=== PATIENT | male | born 1975 | race Two or more races ===

== ENCOUNTER 2021-07-08 14:58 | Inpatient (IN) | payer MEDICAID ==
[~2021-07-08] VITALS: Ht 177.8 cm; Wt 101.0 kg
[2021-07-08] MEDS ORDERED: ENOXAPARIN SOD 100 MG/1 ML SYRINGE SC ONE (16:00)
[2021-07-08 17:08] LABS: Basophils # (auto) 0.1 10 ^3/uL (0-0.2); Basophils % (auto) 0.9 % (0.0-2.0); Eosinophils # (auto) 0.3 10 ^3/uL (0-0.8); Hematocrit 52.9 % (41.0-53.0); Hemoglobin 17.2 g/dL (13.5-17.5); Lymphocytes # (auto) 2.7 10 ^3/uL (0.4-5.4); Lymphocytes % (auto) 29.6 % (10.0-50.0); Mean Corpuscular Hemoglobin 31.1 pg (28.0-32.0); Mean Corpuscular Hgb Conc. 32.5 g/dL (32.0-36.0); Mean Corpuscular Volume 95.6 fL (80.0-100.0); Monocytes # (auto) 0.8 10 ^3/uL (0-1.3); Monocytes % (auto) 8.9 % (0.0-12.0); Neutrophils # (auto) 5.3 10 ^3/uL (1.6-8.6); Neutrophils % (auto) 57.6 % (37.0-80.0); Nucleated Red Blood Cells % 0.2 %; Red Blood Cells 5.54 10^6/uL (4.5-5.90); Red Cell Distribution Width 15.2 % (11.8-14.3); White Blood Cell 9.2 10^3/uL (4.4-10.8)
[2021-07-08] MEDS ORDERED: IOHEXOL 350 MG/ML 100ML IJ ONE (17:13)
[2021-07-08 17:21] LABS: Albumin 3.4 g/dL (3.4-5.0); Calcium 8.9 mg/dL (8.5-10.1)
[2021-07-08 17:25] LABS: BUN/Creatinine Ratio 15.6; Bilirubin, Total 0.5 mg/dL (0.2-1.0); Total Protein 7.6 g/dL (6.4-8.2)
[2021-07-08 17:31] LABS: Potassium 5.8 mmol/L (3.5-5.1)
[2021-07-08] MEDS ORDERED: ONDANSETRON HCL 4 MG/2 ML VIAL IV PRN (19:45)
[2021-07-08] MEDS ORDERED: ACETAMINOPHEN 325 MG TAB PO PRN (19:45)
[2021-07-08] MEDS ORDERED: SODIUM ZIRCONIUM CYCL 10 GM PAK PO ONE (19:45)
[2021-07-08] MEDS ORDERED: TEMAZEPAM 15 MG CAP PO PRN (19:45)
[2021-07-08 23:42] VITALS: BP 109/59
[2021-07-09] VITALS (7 sets, daily range): BP systolic 108–139; BP diastolic 62–78
[2021-07-09] MEDS ORDERED: ASPI325T4 PO (00:38)
[2021-07-09 05:42] LABS: Basophils # (auto) 0 10 ^3/uL (0-0.2); Basophils % (auto) 0.7 % (0.0-2.0); Eosinophils # (auto) 0.3 10 ^3/uL (0-0.8); Hematocrit 46.9 % (41.0-53.0); Hemoglobin 15.6 g/dL (13.5-17.5); Lymphocytes # (auto) 2.3 10 ^3/uL (0.4-5.4); Mean Corpuscular Hemoglobin 31.7 pg (28.0-32.0); Mean Corpuscular Hgb Conc. 33.3 g/dL (32.0-36.0); Mean Corpuscular Volume 95.1 fL (80.0-100.0); Monocytes # (auto) 0.8 10 ^3/uL (0-1.3); Monocytes % (auto) 11.4 % (0.0-12.0); Neutrophils # (auto) 3.3 10 ^3/uL (1.6-8.6); Neutrophils % (auto) 48.9 % (37.0-80.0); Nucleated Red Blood Cells % 0.2 %; Red Blood Cells 4.93 10^6/uL (4.5-5.90); Red Cell Distribution Width 14.8 % (11.8-14.3); White Blood Cell 6.7 10^3/uL (4.4-10.8)
[2021-07-09 05:54] LABS: INR 1.02 (0.9-1.15); Partial Thromboplastin Time 30.1 sec (23.6-33.0)
[2021-07-09 05:57] LABS: Calcium 8.5 mg/dL (8.5-10.1); Potassium 4.3 mmol/L (3.5-5.1)
[2021-07-09] MEDS: ENOXAPARIN SOD 100 MG/1 ML SYRINGE SC SCH ×2 (10:04→20:57)
[2021-07-09] MEDS: HYDROcodone-ACET 5/325MG TAB PO PRN (21:51)
[2021-07-10 05:00] VITALS: BP 122/77
[2021-07-10 08:00] VITALS: BP 107/67
[2021-07-10 09:55] VITALS: BP 107/67
[2021-07-10] MEDS: ENOXAPARIN SOD 100 MG/1 ML SYRINGE SC SCH ×2 (10:00→22:13)
[2021-07-10 14:25] VITALS: BP 97/67
[2021-07-10] MEDS: HYDROcodone-ACET 5/325MG TAB PO PRN (15:38)
[2021-07-10 16:52] VITALS: BP 121/71
[2021-07-10 22:00] VITALS: BP 96/61
[2021-07-11 05:00] VITALS: BP 91/58
[2021-07-11 09:00] VITALS: BP 116/69
[2021-07-11] MEDS: ENOXAPARIN SOD 100 MG/1 ML SYRINGE SC SCH ×2 (11:26→23:30)
[2021-07-11] MEDS: ASPirin-EC 81 mg tab PO SCH (11:26)
[2021-07-11 13:00] VITALS: BP 122/75
[2021-07-11 17:15] VITALS: BP 124/78
[2021-07-11 22:37] VITALS: BP 111/64
[2021-07-12 05:00] VITALS: BP 90/51
[2021-07-12 09:00] VITALS: BP 119/70
[2021-07-12] MEDS: ASPirin-EC 81 mg tab PO SCH (10:00)
[2021-07-12] MEDS: ENOXAPARIN SOD 100 MG/1 ML SYRINGE SC SCH ×2 (10:00→22:24)
[2021-07-12 13:00] VITALS: BP 101/68
[2021-07-12 17:06] VITALS: BP 105/67
[2021-07-12 22:26] VITALS: BP 98/60
[2021-07-12] MEDS: HYDROcodone-ACET 5/325MG TAB PO PRN (22:31)
[2021-07-13 05:00] VITALS: BP 95/59
[2021-07-13 09:00] VITALS: BP 101/65
[2021-07-13] MEDS: ASPirin-EC 81 mg tab PO SCH (10:00)
[2021-07-13] MEDS: ENOXAPARIN SOD 100 MG/1 ML SYRINGE SC SCH ×2 (10:00→22:11)
[2021-07-13 13:00] VITALS: BP 109/75
[2021-07-13 17:06] VITALS: BP 112/68
[2021-07-13 22:00] VITALS: BP 101/62
[2021-07-13] MEDS: HYDROcodone-ACET 5/325MG TAB PO PRN (22:12)
[2021-07-14 04:56] VITALS: BP 94/56
[2021-07-14 09:00] VITALS: BP 101/68
[2021-07-14] MEDS: ASPirin-EC 81 mg tab PO SCH (09:34)
[2021-07-14] MEDS: ENOXAPARIN SOD 100 MG/1 ML SYRINGE SC SCH ×2 (09:34→21:46)
[2021-07-14 13:02] VITALS: BP 99/64
[2021-07-14 17:00] VITALS: BP 106/75
[2021-07-14] MEDS: HYDROcodone-ACET 5/325MG TAB PO PRN (21:46)
[2021-07-14 22:00] VITALS: BP 121/66
[2021-07-15 05:00] VITALS: BP 98/66
[2021-07-15 09:00] VITALS: BP 131/74
[2021-07-15 13:00] VITALS: BP 121/74
[2021-07-15] MEDS ORDERED: GELATIN 1 SPONGE SIZE 50 TOP ONE (13:50)
[2021-07-15] MEDS ORDERED: IODIXANOL 320MG/ML 100ML BTL IV ONE (13:50)
[2021-07-15] MEDS ORDERED: IOHEXOL 350 MG/ML 100ML IJ ONE (13:51)
[2021-07-15] MEDS ORDERED: HEPARIN IN NS 1000Units/500mL 1,500 ML ONE (13:51)
[2021-07-15] MEDS: ASPirin-EC 81 mg tab PO SCH (15:24)
[2021-07-15] MEDS: ENOXAPARIN SOD 100 MG/1 ML SYRINGE SC SCH (15:25)
[2021-07-15 17:00] VITALS: BP 105/65
[2021-07-15 22:00] VITALS: BP 112/72
[2021-07-15] MEDS: HYDROcodone-ACET 5/325MG TAB PO PRN (22:08)
[2021-07-16] VITALS (13 sets, daily range): BP systolic 92–116; BP diastolic 52–71
[2021-07-16] MEDS: ENOXAPARIN SOD 100 MG/1 ML SYRINGE SC SCH ×2 (02:57→10:00)
[2021-07-16] MEDS: ASPirin-EC 81 mg tab PO SCH (10:00)
[2021-07-16] MEDS ORDERED: LIDOCAINE 2%HCL (LOCAL ANESTH.) INJ 20ML MDV ONE (13:03)
[2021-07-16] MEDS ORDERED: IOHEXOL 350 MG/ML 100ML IJ ONE ×2 (13:03→14:13)
[2021-07-16] MEDS ORDERED: ANGIOMAX 250 MG VIAL IV ONE (14:07)
[2021-07-16] MEDS ORDERED: fentaNYL CITRATE 100 MCG/2 ML VL ONE (14:07)
[2021-07-16] MEDS ORDERED: SODIUM CHL 0.9% 50 ML ONE (14:08)
[2021-07-16] MEDS ORDERED: MIDAZOLAM HCL 2MG/2ML 2ml VIAL (1mg/ml) ONE (14:08)
[2021-07-16] MEDS ORDERED: METOCLOPRAMIDE HCL 5MG/ml INJ 2ml VIAL ONE (14:29)
[2021-07-16] MEDS ORDERED: diphenhdrAMINE HCL 50 MG/1 ML VL ONE (14:35)
[2021-07-16] MEDS ORDERED: ONDANSETRON HCL 4 MG/2 ML VIAL ONE (14:43)
[2021-07-16] MEDS ORDERED: RIVAROXABAN 15 MG TAB PO ONE (16:30)
[2021-07-16] MEDS ORDERED: ENOXAPARIN SOD 100 MG/1 ML SYRINGE SC SCH (22:00)
[2021-07-17 05:00] VITALS: BP 91/56
[2021-07-17 09:00] VITALS: BP 112/71
[2021-07-17] MEDS: RIVAROXABAN 15 MG TAB PO SCH ×2 (10:28→21:06)
[2021-07-17] MEDS: ASPirin-EC 81 mg tab PO SCH (10:28)
[2021-07-17 13:00] VITALS: BP 120/67
[2021-07-17 17:00] VITALS: BP 102/68
[2021-07-17 22:00] VITALS: BP 109/69
[2021-07-18 05:00] VITALS: BP 108/67
[2021-07-18 09:00] VITALS: BP 100/60
[2021-07-18] MEDS: ASPirin-EC 81 mg tab PO SCH (09:59)
[2021-07-18] MEDS: RIVAROXABAN 15 MG TAB PO SCH (09:59)
[2021-07-18 13:00] VITALS: BP 102/68
== END 2021-07-18 15:24 | disposition home or self-care (01) | DRG 182 ==
LOC: ER 14:58 → OVERFLOW 19:41 → WEST WING 21:36
PROVIDERS: ADMIT Nurse Practitioner; ATTEND Family Medicine
PROC: 06CY3ZZ Extirpation of Matter from Lower Vein, Percutaneous Approach (ICD-10-PCS; principal; 2021-07-16)
DX: I82.431 Acute embolism and thrombosis of right popliteal vein (principal); D68.59 Other primary thrombophilia; E87.5 Hyperkalemia; Z20.822 Contact with and (suspected) exposure to COVID-19; F17.210 Nicotine dependence, cigarettes, uncomplicated; Z71.6 Tobacco abuse counseling; Z79.01 Long term (current) use of anticoagulants
CPT/HCPCS: 36415; 71045; 71275; 76942; 80048; 80053; 85025; 85379; 85610; 85730; 87426; 93005; 93306; 93971; 96372; 99152; 99153; G0378; J2250; J2405; Q9967

== ENCOUNTER 2023-09-28 16:27 | Inpatient (IN) | payer MEDICAID ==
[~2023-09-28] VITALS: Ht 182.9 cm; Wt 95.8 kg
[~2023-09-28 16:27] MED LIST: ASPI325T4 PO
[2023-09-28 17:02] LABS: Eosinophils # (auto) 0.1 10 ^3/uL (0-0.8); Eosinophils % (auto) 1.4 % (0.0-7.0); Monocytes # (auto) 0.8 10 ^3/uL (0-1.3); White Blood Cell 8.8 10^3/uL (4.4-10.8)
[2023-09-28 17:04] LABS: Basophils # (auto) 0.1 10 ^3/uL (0-0.2); Basophils % (auto) 0.7 % (0.0-2.0); Lymphocytes # (auto) 3.1 10 ^3/uL (0.4-5.4); Lymphocytes % (auto) 34.9 % (10.0-50.0); Mean Corpuscular Hemoglobin 33.1 pg (28.0-32.0); Mean Corpuscular Hgb Conc. 34.8 g/dL (32.0-36.0); Mean Corpuscular Volume 95.1 fL (80.0-100.0); Monocytes % (auto) 8.8 % (0.0-12.0); Neutrophils # (auto) 4.8 10 ^3/uL (1.6-8.6); Neutrophils % (auto) 54.2 % (37.0-80.0); Nucleated Red Blood Cells % 0.6 %; Red Blood Cells 6.39 10^6/uL (4.5-5.90); Red Cell Distribution Width 15.3 % (11.8-14.3)
[2023-09-28 17:10] LABS: Hematocrit 60.8 % (41.0-53.0)
[2023-09-28 17:12] LABS: Hemoglobin 21.2 g/dL (13.5-17.5)
[2023-09-28 17:18] LABS: INR 1.39 (0.9-1.15); Partial Thromboplastin Time 37.5 SEC (24.5-34.5); Prothrombin Time 14.3 sec (9.3-11.8)
[2023-09-28 17:28] LABS: Alanine Aminotransferase 36 U/L (7-40); Albumin 4.2 g/dL (3.2-4.8); Alkaline Phosphatase 104 U/L (46-116); Anion Gap 7 (5-15); Aspartate Aminotransferase 33 U/L (13-40); BUN/Creatinine Ratio 10.5 (10.0-20.0); Bilirubin, Total 0.8 mg/dL (0.2-1.0); Blood Urea Nitrogen 9 mg/dL (9-23); Calcium 9.7 mg/dL (8.5-10.1); Carbon Dioxide 24 mmol/L (20-30); Chloride 106 mmol/L (98-107); Glucose 120 mg/dL (74-106); Potassium 4.1 mmol/L (3.5-5.1); Sodium 137 mmol/L (136-145); Total Protein 6.3 g/dL (5.7-8.2)
[2023-09-28] MEDS ORDERED: MORPHINE SULFATE INJ 2 MG/ml SYRG IV PRN (19:00)
[2023-09-28] MEDS ORDERED: ACETAMINOPHEN 325 MG TAB PO PRN (19:00)
[2023-09-28] MEDS ORDERED: NITROGLYCERIN 0.4 MG SL TAB SL PRN (19:00)
[2023-09-28] MEDS ORDERED: HYDROcodone-ACET 5/325MG TAB PO PRN (19:00)
[2023-09-28 19:07] LABS: Triglycerides 201 mg/dL (< 150)
[2023-09-28 19:08] LABS: LDL Cholesterol 163 mg/dL (< 100)
[2023-09-28 19:09] LABS: Cholesterol 228 mg/dL (< 200); HDL Cholesterol 44 mg/dL (40-59)
[2023-09-28 19:44] VITALS: BP 117/85; TEMP 97.2
[2023-09-28] MEDS: SODIUM CHLORIDE 0.9% 2,000 ML IV ONE (19:53)
[2023-09-28] MEDS: ASPirin 325 MG TAB PO ONE (19:53)
[2023-09-28] MEDS: ENOXAPARIN SOD 100 MG/1 ML SYRINGE SC ONE (19:53)
[2023-09-28 20:05] VITALS: PULSE 111; RESP 16; O2SAT 94
[2023-09-28] MEDS: SODIUM CHLORIDE 0.9% 1,000 ML IV SCH (21:01)
[2023-09-29] MEDS ORDERED: ASPirin 81 mg TAB PO SCH (10:00)
[2023-09-29] MEDS ORDERED: ENOXAPARIN SOD 100 MG/1 ML SYRINGE SC SCH (10:00)
== END 2023-09-28 22:29 | disposition left against medical advice (07) | DRG 198 ==
LOC: ER 16:27 → TELE 18:53
PROVIDERS: ADMIT Nurse Practitioner Family; ATTEND Nurse Practitioner Family
DX: I24.9 Acute ischemic heart disease, unspecified (principal); I82.402 Acute embolism and thrombosis of unspecified deep veins of left lower extremity; D75.1 Secondary polycythemia; E78.5 Hyperlipidemia, unspecified; F17.210 Nicotine dependence, cigarettes, uncomplicated; T45.516A Underdosing of anticoagulants, initial encounter; Z91.148 Patient's other noncompliance with medication regimen for other reason; Z86.718 Personal history of other venous thrombosis and embolism; Z79.82 Long term (current) use of aspirin
CPT/HCPCS: 36415; 71045; 80053; 80061; 80320; 84443; 84484; 85025; 85379; 85610; 85730; 93005; 93970; 99291; G0378